=== PATIENT | male | born 1980 | race Hispanic/Latino ===

== ENCOUNTER → 2017-12-03 | Outpatient (CLI) | payer OTHER | END | disposition home or self-care (01) | LOC: RAH 10:00 | PROVIDERS: ATTEND Nurse Practitioner Family | DX: J32.0 Chronic maxillary sinusitis (principal); J34.2 Deviated nasal septum | CPT/HCPCS: 70486 ==

== ENCOUNTER 2021-11-27 10:57 | Day surgery (SDC) | payer OTHER ==
[2021-11-25 14:00] VITALS: BP 150/98
[2021-11-25 14:40] LABS: BASOPHILS % (AUTO) 0.7 % (0.0-5.0); EOSINOPHILS % (AUTO) 2.5 % (0.0-8.0); HEMATOCRIT 47.7 % (42-54); LYMPHOCYTES % (AUTO) 25.1 % (21.0-51.0); MEAN CORPUSCULAR HEMOGLOBIN 28.9 pg (27.0-33.0); MEAN CORPUSCULAR HGB CONC 33.5 g/dL (32.0-36.0); MEAN CORPUSCULAR VOLUME 86.3 fL (79-99); PLATELET COUNT (AUTO) 221 K/uL (130-400); RED BLOOD CELL COUNT(AUTO) 5.53 MIL/uL (4.50-6.20); RED CELL DISTRIBUTION WIDTH 12.5 % (11.0-15.5); WHITE BLOOD COUNT (AUTO) 7.1 K/uL (4.8-10.8)
[2021-11-25 14:42] LABS: APPEARANCE,URINE Clear (CLEAR); BILIRUBIN,URINE Negative (NEGATIVE); COLOR,URINE Yellow (YELLOW); GLUCOSE, URINE (UA) Negative (NEGATIVE); KETONES,URINE Trace mg/dL (NEGATIVE); LEUKOCYTE ESTERASE ,URINE Negative (NEGATIVE); NITRATE,URINE Negative (NEGATIVE); OCCULT BLOOD,URINE Negative (NEGATIVE); PROTEIN,URINE Negative (NEGATIVE)
[2021-11-25 14:50] LABS: PROTHROMBIN TIME 10.9 SEC (9.6-11.6)
[2021-11-25 14:54] LABS: ALBUMIN 4.2 g/dL (3.5-5.0); BILIRUBIN,TOTAL 0.4 mg/dL (0.2-1.0); TOTAL PROTEIN, SERUM 7.7 g/dL (6.0-8.3)
[~2021-11-27] VITALS: Ht 170.2 cm; Wt 84.4 kg
[2021-11-27] VITALS (13 sets, daily range): BP systolic 128–166; BP diastolic 58–97
[~2021-11-27 10:57] MED LIST: CEFAZOLIN SODIUM 1 GM VIAL IVP ONE; vitamin b PO; vitamin c PO; vitamin d PO; vitamin e PO
[2021-11-27] MEDS ORDERED: BUPIVACAINE/PF 0.25% 30ML VIAL IJ ONE (11:28)
[2021-11-27] MEDS ORDERED: LACTATED RINGERS 1000ML 1,000 ML IV ONE (11:32)
[2021-11-27] MEDS ORDERED: CEFAZOLIN SODIUM 1 GM VIAL ONE (12:04)
[2021-11-27] MEDS ORDERED: ONDANSETRON 4MG INJ ONE ×2 (12:28→14:50)
[2021-11-27] MEDS ORDERED: MIDAZOLAM HCL 1 MG/ML 2ML VIAL ONE (12:29)
[2021-11-27] MEDS ORDERED: ROPIVACAINE 0.5% 5MG/ML 30ML IJ ONE (12:31)
[2021-11-27] MEDS ORDERED: DEXAMETHASONE SOD PHOSPHATE 10MG/ML 1ML VIAL ONE (12:33)
[2021-11-27] MEDS ORDERED: FENTANYL CITRATE PF 50 MCG/1 ML 2ML VIAL ONE ×2 (12:36→13:16)
[2021-11-27] MEDS ORDERED: PROPOFOL 10 MG/ML 20ML VIAL IV ONE (12:36)
[2021-11-27] MEDS ORDERED: ROCURONIUM 10MG/1ML SYR 10 MG/ML ML ONE ×2 (12:36→13:16)
[2021-11-27] MEDS ORDERED: EPHEDRINE SULFATE 50 MG/ML AMPULE ONE (13:28)
[2021-11-27] MEDS ORDERED: MEPERIDINE-PF 25 MG/ML SYG ONE ×3 (14:06→14:50)
[2021-11-27] MEDS ORDERED: KETOROLAC 30MG VIAL (30MG/ML) ONE ×2 (14:07→14:50)
[2021-11-27] MEDS ORDERED: GLYCOPYRROLATE 1 MG/5 ML SYRINGE ONE (14:07)
[2021-11-27] MEDS ORDERED: NEOSTIGMINE 5MG/5ML SYR IV ONE (14:07)
== END 2021-11-27 16:05 | disposition home or self-care (01) ==
LOC: DAH 10:57
PROVIDERS: ATTEND Student in an Organized Health Care Education/Training Program
DX: K42.0 Umbilical hernia with obstruction, without gangrene (principal); Z20.822 Contact with and (suspected) exposure to COVID-19; I10 Essential (primary) hypertension; Z79.899 Other long term (current) drug therapy; Z79.01 Long term (current) use of anticoagulants; Z98.890 Other specified postprocedural states
CPT/HCPCS: 49653; S2900; 36415; 71045; 80053; 81003; 85025; 85610; 87635; C9803; J0690; J1100; J1885; J2175; J2250; J2405; J2704; J2710; J2795; J3010; J3490; J7030; J7120

== ENCOUNTER → 2024-08-23 | Outpatient (CLI) | payer OTHER ==
[~2024-08-23] MED LIST changes: -CEFAZOLIN SODIUM 1 GM VIAL IVP ONE
--- NOTE | 2024-08-23 10:16 | HMCIMG ---
CT CORONARY CALCIFICATION SCORING: Anatomic images were reviewed. The calcium score is being generated and reported separately. This report is for the visualized anatomy only. Visualized portions of the lungs are clear. Hilar and mediastinal structures appear normal. Osseous structures are unremarkable. Impression: 1. Negative noncardiac anatomic findings. 2. The calcium score is 17.7 consistent with a mild degree of calcified plaque. This is 80th percentile for a patient this age. CT was performed with one or more following dose reduction techniques: automated exposure control, adjustment of the mA and kv according to patient's size, or use of a iterative reconstruction technique.
== END | disposition home or self-care (01) ==
LOC: RAH 08:40
PROVIDERS: ATTEND Nurse Practitioner Family
DX: Z13.6 Encounter for screening for cardiovascular disorders (principal); I25.10 Atherosclerotic heart disease of native coronary artery without angina pectoris
CPT/HCPCS: 75571